=== PATIENT | male | born 1995 | race Two or more races ===

== ENCOUNTER 2023-01-03 15:07 | Emergency (ER) | payer BC, OTHER ==
[~2023-01-03] VITALS: Ht 167.6 cm; Wt 81.6 kg
[2023-01-03 15:35] VITALS: BP 122/75
[2023-01-03] MEDS ORDERED: LIDO30AD10 TP (16:12)
[2023-01-03] MEDS ORDERED: NAPR-1164 PO (16:12)
[2023-01-03] MEDS ORDERED: CYCL5TAB PO (16:12)
[2023-01-03] MEDS ORDERED: CYCLOBENZAPRINE 10 MG TABLET ONE (16:29)
[2023-01-03] MEDS ORDERED: KETOROLAC TROMETHAMINE INJ 30 MG/ML VIAL ONE (16:29)
[2023-01-03] MEDS ORDERED: KETOROLAC TROMETHAMINE INJ 60 MG/2 ML VIAL IM ONE (16:30)
[2023-01-03] MEDS ORDERED: CYCLOBENZAPRINE 10 MG TABLET PO ONE (16:30)
--- NOTE | 2023-01-03 16:41 | NUR ---
DISCHARGE TO WAITING ROOM, FOR OBSERVATION FOR AN ADVERSE REACTION.
== END 2023-01-03 16:42 | disposition home or self-care (01) ==
LOC: ER 15:18
DX: M41.9 Scoliosis, unspecified (principal); M54.9 Dorsalgia, unspecified; Z79.899 Other long term (current) drug therapy
CPT/HCPCS: 99283; 96372; J1885